=== PATIENT | female | born 1965 | race African-American/Black ===

== ENCOUNTER 2019-05-12 11:32 | Emergency (ER) | payer OTHER ==
[2019-05-12 13:00] VITALS: BP 134/83; PULSE 90; TEMP 98.4; BMI 38.5
[2019-05-12] MEDS ORDERED: CLINDAMYCIN HCL 300 MG CAPSULE PO ONE (13:52)
--- NOTE | 2019-05-12 14:02 | PDOC ---
History of Present Illness - General Chief Complaint: Abscess Boil Stated Complaint: BOILS - History of Present Illness Initial Comments: Roberta Riddle is a 53yo woman with a PMH of hydradenitis who presents reporting a painful "boil" under her left breast. She reports that she frequently has outbreaks of the hydradenitis since around age 11; they are located in her bilateral axilla, under both breasts and at the groin. She currently has one under the left breast that she says is a 9/10 in pain, and she states that it is the worst she has ever experienced. She first noticed it 4-5 days ago but had her grandchildren at her house and could not be seen earlier. She says that she has been putting moist compresses on the area, cleaning it with saline, and covering it with dry gauze. Ms Riddle reports copious drainage that soaked through the gauze and through her shirt. She reports that the "boils" at the groin are currently at baseline and not particularly bothering her. She had one under the right breast drained last June, and it has mostly healed though it has started draining again recently. Ms Riddle denies any fevers, chills, nausea, vomiting, malaise, fatigue, or other systemic symptoms. She states that she has an appointment with a breast surgeon scheduled for possible intervention but the appointment is not until July. Past History - Past Medical History Allergies/Adverse Reactions: Allergies Allergy/AdvReac Type Severity Reaction Status Date / Time cinnamon Allergy Intermediate Hives Verified 05/12/19 11:34 cranberry Allergy Intermediate Hives Verified 05/12/19 11:34 Home Medications: Ambulatory Orders Clindamycin [Cleocin -] 300 mg PO TID #21 capsule 05/12/19 Ibuprofen 600 mg PO Q6H PRN #30 tablet 05/12/19 Oxycodone HCl/Acetaminophen [Percocet 5-325 mg Tablet] 1 tab PO Q6H PRN #15 tab MDD 4 05/12/19 COPD: No Other medical history: ABSCESSES SINCE CHILDHOOD - Suicide/Smoking/Psychosocial Hx Smoking History: Never smoked Hx Alcohol Use: No Drug/Substance Use Hx: No Review of Systems - Review of Systems Comments:: General: No fevers, no chills, no weight or appetite change, no malaise HEENT: No changes in vision, no changes in hearing, no congestion, no sore throat CV: No chest pain, no palpitations, no LE edema Pulm: No SOB, no cough, no wheezing GI: No nausea or vomiting, no change in bowel habits, no melena : No frequency, no urgency, no dysuria Musc: No back pain, no joint swelling, no recent injury Skin: See HPI Endo: No excessive thirst, no heat/cold intolerance Heme: No unusual bruising or bleeding, no swollen glands Neuro: No syncope, no numbness/tingling, no focal weakness Vasc: No claudication Psych: No recent change in mood, no SI or HI *Physical Exam - Vital Signs Last Vital Signs Temp Pulse Resp BP Pulse Ox 98.4 F 90 16 134/83 99 05/12/19 11:33 05/12/19 11:33 05/12/19 11:33 05/12/19 11:33 05/12/19 11:33 - Physical Exam Comments: General: Uncomfortable but in no acute distress HEENT: PERRL, EOMI, MMM, voice normal, normal neck ROM Cards: RRR, no murmur appreciated Pulm: Comfortable on room air, clear to auscultation bilaterally Abd: Soft, nontender, nondistended Ext: Atraumatic. No LE edema. ROM intact. WWP Skin: Left inframammary fold w/ area of dark discoloration and induration approxiamtely 6cm in diameter; tender, open, draining nickel sized area in the center. Area of induration also in rt inframammary fold w/ pinpoint areas of draining pus; no TTP. b/l groin w/ skin changes c/w hydradenitis with multiple draining wounds at groin creases. b/l axilla with well healed surgical scars Neuro: A&Ox3, CN grossly intact, normal speech, motor/sensory grossly intact and symmetric Psych: Mood appropriate to situation Medical Decision Making - Medical Decision Making 05/12/19 13:52 Roberta Riddle is a 53yo woman with a PMH of hydradenitis who presents with severe pain due to an outbreak under her left breast. She denies any systemic infections. She reports hydradenitis also located under the right breast and b/ l groin but reports these are at baseline. - Percocet for pain - Will give prescription for clindamycin; first dose to be give here - Discussed home care instructions, return precautions at length. Advised to return in 48 hours for follow up Discussed with Dr Brown. Theresa Elmore PGY2 *DC/Admit/Observation/Transfer Diagnosis at time of Disposition: Hydradenitis - Discharge Dispostion Disposition: HOME Condition at time of disposition: Stable Decision to Admit order: No - Prescriptions Prescriptions: Clindamycin [Cleocin -] 300 mg PO TID #21 capsule Ibuprofen 600 mg PO Q6H PRN #30 tablet PRN Reason: Pain Oxycodone HCl/Acetaminophen [Percocet 5-325 mg Tablet] 1 tab PO Q6H PRN #15 tab MDD 4 PRN Reason: Pain - Referrals - Patient Instructions Printed Discharge Instructions: Hidradenitis Suppurativa, DI for Skin Abscess Additional Instructions: Discharge Instructions: You were seen in the emergency department for an outbreak of your previously diagnosed hydradenitis. You were given pain medication and antibiotics. Home Care and Follow Up: - You have been prescribed ibuprofen 600mg that may be taken every 6-8 hours as needed for pain. - You may also take 650-1000mg acetaminophen (Tylenol) if needed for continued pain. Tylenol ad ibuprofen may be alternated every 3-4 hours. For example, if you take ibuprofen at 9am, you may take acetaminophen at noon, ibuprofen at 3pm , etc. - It is strongly recommended that you take ibuprofen with food to help prevent stomach irritation. - Continue to wash your wound twice per day with saline - Cover with dry gauze - You will need to return to the ED in 48 hours for a wound check - See your regular doctor within the next week for follow up. You may need to be referred to a specialist such as a plastic surgeon. - Seek immediate medical care if you have significant worsening of your symptoms , you have fever to 101F or shivering chills, you have nausea or vomiting, your wound worsens, you have spreading redness around the wound or increased swelling , or you have any other medical emergency. - Post Discharge Activity
--- NOTE | 2019-05-12 14:05 | PDOC ---
Attending Attestation - Resident Resident Name: Theresa Elmore - ED Attending Attestation I have performed the following: I have examined & evaluated the patient, The case was reviewed & discussed with the resident, I agree w/resident's findings & plan, Exceptions are as noted - HPI HPI: 05/12/19 14:00 53-year-old female history of hidradenitis here today complaining of pain under her left breast. Patient states that she started to notice an infection under her left breast about 3-4 days ago. Yesterday the wound began draining some yellowish fluid. She has had this several times in the past. It is also given prescription by [facility] 2 weeks ago for an infection under the opposite breast. had called for an appointemnt at that time but they were unable to see her so called in rx for keflex which she completed. no f/c also c /o irritation in groin area which she gets every time she gets her period. has had surgery on glands in her axilla about 10 years ago. no other complaints. pain is severe. - Physicial Exam PE: 05/12/19 14:04 awake alert lungs clear bilat heart rrr no mrg abd soft obese. left breast inframmary area with wound open to subcut, no expressable drainage on palpations. some bleeding. inferior portion with 2 - 3 cm induration. mild erythema and warmth. no crepitus. right breast inframammary area with small 2 mm wound. no active drainage. bilat inguinal areas with small pustules, no abscess or induration. lungs clear bilat heart rrr no mrg abd soft nt nd except area skin irritation. - Medical Decision Making 05/12/19 14:05 53 yo F with h/o hydradenitis here with draining left inframammary wound. plan will presscribe clindamycine, saline soaks, repeat wound check in 48 hours. given percocet for pain here in ed, and first dose abx.
[2019-05-12] MEDS ORDERED: CLINDAMYCIN HCL 150 MG CAPSULE (FP) ONE (14:22)
== END 2019-05-12 14:40 | disposition home or self-care (01) ==
LOC: FER 11:32
DX: L73.2 Hidradenitis suppurativa (principal)
CPT/HCPCS: 99281-25

== ENCOUNTER 2019-05-15 08:57 | Emergency (ER) | payer OTHER ==
[2019-05-15 09:04] VITALS: BP 136/91; PULSE 99; TEMP 98.5; BMI 40.8
--- NOTE | 2019-05-15 09:16 | PDOC ---
History of Present Illness - General Chief Complaint: Wound Stated Complaint: WOUND FOLLOW UP Time Seen by Provider: 05/15/19 09:09 - History of Present Illness Initial Comments: 05/15/19 09:23 53 years old with past medical history significant for hidradenitis suppurativa urgency department presents to the emergency department for wound check of a ulcer below her left breast. Patient was seen in the emergency department 2 days ago was started on by mouth clindamycin has been doing saline soaks. Past History - Past Medical History Allergies/Adverse Reactions: Allergies Allergy/AdvReac Type Severity Reaction Status Date / Time cinnamon Allergy Intermediate Hives Verified 05/15/19 08:58 cranberry Allergy Intermediate Hives Verified 05/15/19 08:59 Home Medications: Ambulatory Orders Clindamycin [Cleocin -] 300 mg PO TID #21 capsule 05/12/19 Ibuprofen 600 mg PO Q6H PRN #30 tablet 05/12/19 Oxycodone HCl/Acetaminophen [Percocet 5-325 mg Tablet] 1 tab PO Q6H PRN #15 tab MDD 4 05/12/19 COPD: No Other medical history: HYDROADENITIS - Suicide/Smoking/Psychosocial Hx Smoking History: Never smoked Information on smoking cessation initiated: No Hx Alcohol Use: No Drug/Substance Use Hx: No Review of Systems - Review of Systems Comments:: 05/15/19 09:23 ROS: A complete review of 10 out of 10 review of systems is taken and is negative apart from what is previously mentioned below and in the HPI. *Physical Exam - Vital Signs Last Vital Signs Temp Pulse Resp BP Pulse Ox 98.5 F 99 H 16 136/91 99 05/15/19 08:58 05/15/19 08:58 05/15/19 08:58 05/15/19 08:58 05/15/19 08:58 - Physical Exam Comments: 05/15/19 09:31 Vitals: Triage Vital signs reviewed General Appearance: no acute distress, well nourished well developed, Head: Atraumatic, Extremities: Full range of motion to all extremities, no cyanosis, clubbing, or edema Skin: Warm and dry, 3 cm x 3 cm ulcer on the left breast well-appearing no evidence of infection no surrounding redness Psych: normal mood, normal affect Medical Decision Making - Medical Decision Making 08/29/19 09:31 Well-healing ulcer no evidence of cellulitis. We'll recommend continuing clindamycin continuing saline rinses bacitracin over the ulcer. We have also arranged for the patient to follow up with wound care Findings, the need for follow-up and strict return instructions discussed with patient. *DC/Admit/Observation/Transfer Diagnosis at time of Disposition: Ulcer - Discharge Dispostion Disposition: HOME Condition at time of disposition: Stable Decision to Admit order: No - Referrals Referrals: Lon Huber DO [Staff Physician] - - Patient Instructions Additional Instructions: Continue antibiotics, continue saline washes, place bacitracin over the ulcer twice a day and cover with gauze. Follow-up with the wound care center with next Sunday. 5 th floor. [facility]. [address] [place] [address]. SundayMay 23 9AM Return to the emergency department for any fever spreading redness uncontrollable pain or for any concerns. - Post Discharge Activity
== END 2019-05-15 10:00 | disposition home or self-care (01) ==
LOC: FER 08:57
DX: Z48.00 Encounter for change or removal of nonsurgical wound dressing (principal)
CPT/HCPCS: 99281-25

== ENCOUNTER 2023-06-23 10:01 | Emergency (ER) | payer OTHER ==
[2023-06-23] MEDS ORDERED: ACETAMINOPHEN 1000 MG/100 ML BAG IVPB ONE (10:33)
[2023-06-23 10:34] VITALS: RESP 18; BMI 39.2
[2023-06-23] MEDS ORDERED: ACETAMINOPHEN INJECTION 100 ML IVPB ONE (10:37)
[2023-06-23 11:08] LABS: HEMATOCRIT 37.4 % (32.4-45.2); MCH 27.3 pg (25.7-33.7); MCHC 32.2 g/dl (32.0-36.0); MEAN CELL VOLUME 85.1 fl (80-96); MEAN PLT VOLUME 8.7 fl (7.5-11.1); PLATELET COUNT 213.6 10^3/uL (134-434); RDW 14.7 % (11.6-15.6); WHITE BLOOD COUNT 4.9 10^3/uL (4.0-10.8)
[2023-06-23 11:14] LABS: EPITHELIAL CELLS MANY /hpf
[2023-06-23 11:22] LABS: PLATELET ESTIMATE ADEQUATE
[2023-06-23 11:29] LABS: ALBUMIN 4.1 g/dl (3.4-5.0); BILIRUBIN,TOTAL 0.3 mg/dl (0.2-1); BLOOD UREA NITROGEN 10.4 mg/dl (7-18); CALCIUM 9.3 mg/dl (8.5-10.1); CREATININE 0.6 mg/dl (0.6-1.3); POTASSIUM 4.2 mmol/L (3.5-5.1); SGOT/AST 11.7 U/L (15-37); SGPT/ALT 10.6 U/L (7-52); TOT PROT 7.2 g/dl (6.4-8.2)
[2023-06-23 13:25] VITALS: BP 130/82; PULSE 84; TEMP 98.4
== END 2023-06-23 13:55 | disposition home or self-care (01) ==
LOC: FER 10:01
PROC: 3E033NZ Introduction of Analgesics, Hypnotics, Sedatives into Peripheral Vein, Percutaneous Approach (ICD-10-PCS; principal; 2023-06-23)
DX: R10.32 Left lower quadrant pain (principal); K59.00 Constipation, unspecified; R35.89 Other polyuria
CPT/HCPCS: 36415; 74177-TC; 80053; 81003; 81015; 85027; 87086; 93005; 99285-25; Q9967